=== PATIENT | female | born 2000 | race African-American/Black ===

== ENCOUNTER 2024-03-27 08:36 | Emergency (ER) | payer MEDICAID ==
[~2024-03-27] VITALS: Ht 157.5 cm; Wt 72.5 kg
[2024-03-27 08:41] VITALS: PULSE 86; RESP 16; O2SAT 100
[2024-03-27 08:43] VITALS: BP 133/76; TEMP 36.7; O2SAT 100
[2024-03-27 09:37] LABS: CLARITY URINE CLEAR (CLEAR); COLOR URINE YELLOW (YELLOW); GLUCOSE URINE NEGATIVE (NEGATIVE); KETONES URINE NEGATIVE (NEGATIVE); LEUKOCYTE ESTERASE URINE TRACE (NEGATIVE); NITRITE URINE NEGATIVE (NEGATIVE); OCCULT BLOOD URINE NEGATIVE (NEGATIVE); PROTEIN URINE NEGATIVE (NEGATIVE); SPECIFIC GRAVITY URINE 1.025 (1.005-1.030)
[2024-03-27] MEDS ORDERED: DOXY100C5 MT (09:48)
[2024-03-27] MEDS: CEFTRIAXONE SODIUM 500MG VIAL IM ONE (09:49)
[2024-03-27] MEDS: LIDOCAINE HCL 1% 20ML VIAL INFIL ONE (09:49)
[2024-03-27 09:58] LABS: RBC URINE 0-2 /hpf (0-2); SQUAMOUS EPITHELIAL CELL URINE 1+ /lpf (RARE/1+); YEAST URINE NONE SEEN
[2024-03-27 09:59] LABS: BACTERIA URINE 2+
[2024-03-29 06:08] LABS: CHLAMYDIA TRACHOMATIS NAA Negative (Negative); NEISSERIA GONORRHOEAE NAA Negative (Negative)
== END 2024-03-27 09:54 | disposition home or self-care (01) ==
LOC: ER 08:36
DX: N76.0 Acute vaginitis (principal)
CPT/HCPCS: 87491; 87591; 81003; 96372; 99283; J0696; J3490; Z7610

== ENCOUNTER 2024-05-18 15:40 | Emergency (ER) | payer MEDICAID ==
[~2024-05-18] VITALS: Ht 172.7 cm; Wt 60.0 kg
[~2024-05-18 15:40] MED LIST: DOXY100C5 MT
[2024-05-18 15:42] VITALS: O2SAT 98
[2024-05-18 15:49] VITALS: BP 137/91; PULSE 70; RESP 16; TEMP 36.7; O2SAT 99
== END 2024-05-18 21:21 | disposition left against medical advice (07) ==
LOC: ER 15:49
DX: R42 Dizziness and giddiness (principal); Z53.21 Procedure and treatment not carried out due to patient leaving prior to being seen by health care provider
CPT/HCPCS: 99283